=== PATIENT | female | born 1970 | race Caucasian/White ===

== ENCOUNTER 2016-06-23 18:53 | Emergency (ER) | payer OTHER ==
[~2016-06-23] VITALS: Ht 172.7 cm; Wt 83.9 kg
[~2016-06-23 18:53] MED LIST: /CARBXR20T OR; ABIL5TAB OR; ACIPHEX; AMIT10TA2 OR; ANAFRANIL; ATIV0.5T OR; BCP; DOCU10CA PO; EFFE150C PO; FERR32TA PO; FLOM5CAP PO; IBUP600T OR; IBUP80TA PO; LIPI20TA PO; LISI-538 PO; LISI40TAB PO; LORT1TAB PO; MEGA40SU PO; OMEP40CA2 PO; OXYB10TA PO; PERC5TAB6 PO; PRIL20CA; RISP1TAB OR; SENO8.6T5 OR; TEGR200T PO; TRAZ150T OR; VENL150C43 PO; VENL75CA PO; VITA100066 PO; VITMTA PO
[2016-06-23] MEDS ORDERED: KLON1TAB PO (19:08)
--- NOTE | 2016-06-23 21:00 | REPUSA ---
CT of the head Clinical history: trauma. Technique: Multiple axial CT images were obtained through the head without administration of contrast . Comparison: None. Findings: The ventricles and sulci are symmetric bilaterally. There is no evidence of acute hemorrhag e or infarct. There is no midline shift, mass effect, or extra-axial fluid collection. The osseous st ructures are unremarkable. The visualized paranasal sinuses and mastoid air cells are clear. Impression: Negative study.
[2016-06-23 21:59] VITALS: BP 142/68
== END 2016-06-23 22:00 | disposition home or self-care (01) ==
LOC: M ED 20:48
DX: S09.90XA Unspecified injury of head, initial encounter (principal); W19.XXXA Unspecified fall, initial encounter; Y92.018 Other place in single-family (private) house as the place of occurrence of the external cause; Y93.89 Activity, other specified; Y99.8 Other external cause status; I10 Essential (primary) hypertension; E78.00 Pure hypercholesterolemia, unspecified; I25.10 Atherosclerotic heart disease of native coronary artery without angina pectoris; F41.9 Anxiety disorder, unspecified; F33.9 Major depressive disorder, recurrent, unspecified; Z98.84 Bariatric surgery status; Z79.899 Other long term (current) drug therapy

== ENCOUNTER → 2017-03-18 | Outpatient (REF) | payer OTHER ==
[2017-03-18 19:41] LABS: INFLUENZA A AMPLIFICATION NEGATIVE (NEGATIVE); INFLUENZA B AMPLIFICATION NEGATIVE (NEGATIVE)
== END ==
LOC: M LAB REF 17:53
DX: R05 Cough (principal)
CPT/HCPCS: 87502

== ENCOUNTER → 2018-01-06 | Outpatient (REF) | payer OTHER ==
[2018-01-06 17:20] LABS: VITAMIN B12 LEVEL 716 PG/ML (247-911)
== END ==
LOC: M LAB REF 16:40
DX: R63.4 Abnormal weight loss (principal)
CPT/HCPCS: 82607

== ENCOUNTER → 2019-01-04 | Outpatient (CLI) | payer MEDICARE ==
[~2019-01-04] MED LIST changes: -/CARBXR20T OR; -EFFE150C PO; +EFFE150C2 PO; +FLOM0.4C39 PO; -FLOM5CAP PO; +KLON1TAB PO; +LISI40TA52 PO; -LISI40TAB PO; -OMEP40CA2 PO; +OMEP40CA97 PO; -OXYB10TA PO; +OXYB10TA2 PO; +PERC5TAB12 PO; -PERC5TAB6 PO; +TEGR1TAB OR; -VENL75CA PO; +VENL75CA2 PO
--- NOTE | 2019-01-04 12:24 | REP ---
Hepatobiliary scan and gallbladder ejection fraction: History: Right upper quadrant abdomen pain. Technique: 6.6 mCi of technetium-99m mebrofenin was injected and sequential anterior images are acquired. 65 minutes after the mebrofenin injection, the patient consumed 8 ounces Ensure and an additional 60 minutes of imaging was acquired. Regions of interest are plotted around the gallbladder. Findings: The initial hepatocellular parenchymal uptake phase is normal and homogeneous. Intra- and extra-hepatic bile ducts are labeled by the 10 -minute image. The gallbladder is first labeled on the 25 -minute image. There is normal washout from the liver parenchyma into the gallbladder and small intestine on subsequent images. The gallbladder ejection fraction is 99 %. Values greater than 35 % are considered normal with this technique. Impression: Normal hepatobiliary scan and normal gallbladder ejection fraction. Electronically Signed by Jerrod Shafer MD 01/04/2019 12:16 P
== END ==
LOC: M RAD 08:05
PROVIDERS: ATTEND Nurse Practitioner Adult Health
DX: R10.11 Right upper quadrant pain (principal)
CPT/HCPCS: 78227; A9537; J2805

== ENCOUNTER → 2019-04-20 | Outpatient (CLI) | payer MEDICARE ==
[~2019-04-20] MED LIST changes: -OXYB10TA2 PO; +OXYB10TA23 PO
[2019-04-20 15:57] LABS: FREE T4 0.93 NG/DL (0.76-1.46); THYROID STIMULATING HORMONE 2.68 uIU/ML (0.358-3.740)
== END ==
LOC: M LAB 14:44
PROVIDERS: ATTEND Internal Medicine Gastroenterology
DX: R11.2 Nausea with vomiting, unspecified (principal)

== ENCOUNTER → 2019-04-22 | Outpatient (REF) | payer MEDICARE | LOC: M LAB REF 10:13 | PROVIDERS: ATTEND Internal Medicine Gastroenterology | DX: R11.2 Nausea with vomiting, unspecified (principal) ==

== ENCOUNTER → 2019-07-13 | Outpatient (CLI) | payer MEDICARE ==
[~2019-07-13] MED LIST changes: +AMLO25TA PO; +CIDA500T2 PO; +CO Q200C10 PO; +DERM1TAB2 PO; +MAGN400C PO; +ZINC1TAB2 PO
== END ==
LOC: M LABSMTC 11:04
PROVIDERS: ATTEND Anesthesiology
DX: Z01.818 Encounter for other preprocedural examination (principal); Z11.59 Encounter for screening for other viral diseases
CPT/HCPCS: C9803; U0003

== ENCOUNTER 2019-07-16 08:33 | Day surgery (SDC) | payer MEDICARE ==
[~2019-07-16] VITALS: Ht 172.7 cm; Wt 86.5 kg
[~2019-07-16 08:33] MED LIST changes: -LISI-538 PO; +LISI20TA33 PO; +NS 1,000 ML IV ONE
--- NOTE | 2019-07-16 10:36 | ROOR ---
Patient Name: Janee Mederos Procedure Date: 07/16/2019 9:59 AM Date of : 1970 Age: 49 Room: [facility] Gender: Female Note Status: Finalized Procedure: Upper GI endoscopy Indications: Nausea with vomiting Providers: Ed MC MD Referring MD: Jennifer Funk NP Requesting Provider: Medicines: Monitored Anesthesia Care Complications: No immediate complications. Procedure: Pre-Anesthesia Assessment: - The heart rate, respiratory rate, oxygen saturations, blood pressure, adequacy of pulmonary ventilation, and response to care were monitored throughout the procedure. The Endoscope was introduced through the mouth, and advanced to the second part of duodenum. The upper GI endoscopy was accomplished without difficulty. The patient tolerated the procedure well. Findings: The examined esophagus was normal. (The area of the LES feels a bit spastic) The entire examined stomach was normal. The examined duodenum was normal. Biopsies for histology were taken with a cold forceps for evaluation of celiac disease. Impression: - Normal esophagus. - Normal stomach. - Normal examined duodenum. Biopsied. Recommendation: - Telephone endoscopist for pathology results in 2 weeks. - Observe patient's clinical course. - Your Gallbladder ejection fraction is 99%.- May be Hyeractive. Consider discussing this with your surgeon. Consider cholecystectomy. - Continue Dicyclomine as needed Ed Mc MD Ed MC MD 07/16/2019 10:35:58 AM Electronically signed by Ed MC MD Number of Addenda: 0 Note Initiated On: 07/16/2019 9:59 AM Estimated Blood Loss: Estimated blood loss: none. Estimated blood loss: none.
--- NOTE | 2019-07-16 10:38 | ROOR ---
Patient Name: Janee Mederos Procedure Date: 07/16/2019 10:00 AM Date of : 1970 Age: 49 Room: [facility] Gender: Female Note Status: Finalized Procedure: Colonoscopy Indications: Clinically significant diarrhea of unexplained origin Providers: Ed MC MD Referring MD: Jennifer Funk NP Requesting Provider: Medicines: Monitored Anesthesia Care Complications: No immediate complications. Procedure: Pre-Anesthesia Assessment: - The heart rate, respiratory rate, oxygen saturations, blood pressure, adequacy of pulmonary ventilation, and response to care were monitored throughout the procedure. The Colonoscope was introduced through the anus and advanced to 10 cm into the ileum. The colonoscopy was performed without difficulty. The patient tolerated the procedure well. The quality of the bowel preparation was good. Findings: The perianal and digital rectal examinations were normal. Internal hemorrhoids were found during retroflexion. The hemorrhoids were medium-sized. The entire examined colon appeared normal on direct and retroflexion views. The terminal ileum appeared normal. Biopsies for histology were taken with a cold forceps for evaluation of microscopic colitis. Impression: - Internal hemorrhoids. - The entire examined colon is normal on direct and retroflexion views. - The examined portion of the ileum was normal. - Biopsies were taken with a cold forceps for evaluation of microscopic colitis. Recommendation: - Telephone endoscopist for pathology results in 2 weeks. - Use Bentyl (dicyclomine) 20 mg PO TID 30 min AC. Ed Mc MD Ed MC MD 07/16/2019 10:38:15 AM Electronically signed by Ed MC MD Number of Addenda: 0 Note Initiated On: 07/16/2019 10:00 AM Estimated Blood Loss: Estimated blood loss: none.
[2019-07-16 11:00] VITALS: BP 141/70
== END 2019-07-16 11:20 | disposition home or self-care (01) ==
LOC: M OPP 08:33
PROVIDERS: ATTEND Internal Medicine Gastroenterology
DX: K64.8 Other hemorrhoids (principal); R19.7 Diarrhea, unspecified; R11.2 Nausea with vomiting, unspecified; Z79.899 Other long term (current) drug therapy; F32.9 Major depressive disorder, single episode, unspecified

== ENCOUNTER → 2020-05-18 | Outpatient (CLI) | payer MEDICARE ==
[~2020-05-18] MED LIST changes: -NS 1,000 ML IV ONE
--- NOTE | 2020-05-18 10:47 | REP ---
INDICATION: ENLARGED THYROID. COMPARISON: Outside report of an esophagram from [facility] dated 04/21/2020 identified a 1.3-1.8 cm smooth filling defect along the right proximal esophagus which could be from a prominent thyroid or from a leiomyoma in the proximal esophagus. TECHNIQUE: Thyroid ultrasound. FINDINGS: The thyroid right lobe measures 4.4 x 1.5 x 1.8 cm. The thyroid left lobe measures 3.7 x 1.4 x 0.9 cm. The thyroid isthmus measures 2.3 mm thickness. The thyroid is normal size. The thyroid parenchyma is diffusely inhomogeneous. This is compatible with goiter, but can also be seen in Hector thyroiditis and in Graves disease. There are 3 small hypoechoic nodules in the right lobe each measuring approximately 4 mm. There are 2 small nodules in the left lobe each measuring approximately 4 mm. These small nodules are likely small thyroid adenomatous cysts. IMPRESSION: The thyroid gland is normal size. The thyroid parenchyma is in homogeneous, compatible with goiter, but can also be seen in Hector thyroiditis and in Graves disease. <Electronically signed by Cliff Tovar > 05/18/20 1049
== END ==
LOC: M RAD 09:56
PROVIDERS: ATTEND Nurse Practitioner Adult Health
DX: E04.2 Nontoxic multinodular goiter (principal)

== ENCOUNTER → 2020-08-15 | Outpatient (REF) | payer MEDICARE ==
[~2020-08-15] MED LIST changes: +OMEP40CA4 PO; -OMEP40CA97 PO
[2020-08-15 13:40] LABS: APPEARANCE, URINE CLEAR (CLEAR); BACTERIA, URINE AUTO NEGATIVE (NEGATIVE); BILIRUBIN, URINE AUTO NEGATIVE (NEGATIVE); BLOOD, URINE BLOOD NEGATIVE (NEGATIVE); COLOR, URINE STRAW (YELLOW); GLUCOSE, URINE (UA) AUTO NEGATIVE (NEGATIVE); KETONE, URINE AUTO NEGATIVE (NEGATIVE); LEUKOCYTE ESTERASE, URINE AUTO NEGATIVE (NEGATIVE); NITRITE, URINE AUTO NEGATIVE (NEGATIVE); PROTEIN, URINE AUTO NEGATIVE (NEGATIVE); RBC, URINE AUTO 0 /HPF (0-3); SPECIFIC GRAVITY URINE AUTO 1.004 (1.002-1.035); SQUAMOUS EPITHELIAL CELL UR AU 0 /HPF (0-6); UROBILINOGEN, URINE AUTO 0.2 mg/dL (0.0-2.0); WBC, URINE AUTO 0 /HPF (0-3)
[2020-08-15 13:48] LABS: INR 0.89; PROTHROMBIN TIME 12.2 SECONDS (12.5-14.3)
== END ==
LOC: M LAB REF 12:39
PROVIDERS: ATTEND Nurse Practitioner Adult Health
DX: Z01.818 Encounter for other preprocedural examination (principal)

== ENCOUNTER → 2021-01-17 | Outpatient (CLI) | payer MEDICARE ==
[2021-01-17 12:54] LABS: BASO # 0.1 10^3/uL (0.0-0.2); BASO % 0.5 % (0.0-1.0); EOS # 0.1 10^3/uL (0.0-0.5); EOS % 1.5 % (0.0-3.0); HEMATOCRIT 41.6 % (36.0-47.0); HEMOGLOBIN 13.3 g/dl (12.0-15.5); LYMPH # 2.5 10^3/uL (1.5-5.0); LYMPH % 27.3 % (24.0-44.0); MEAN CORPUSCULAR VOLUME 93.9 fl (80.0-96.0); MONO # 0.8 10^3/uL (0.0-0.8); MONO % 8.1 % (2.0-8.0); NEUTROPHILS # 5.8 10^3/uL (1.5-8.5); NEUTROPHILS % 62.2 % (36.0-66.0); PLATELET COUNT, AUTOMATED 297 10^3/uL (150-450); RED BLOOD COUNT 4.43 10^6/uL (4.00-5.40); WHITE BLOOD COUNT 9.3 10^3/uL (4.0-10.0)
[2021-01-17 13:43] LABS: HEMOGLOBIN A1c 5.1 %
[2021-01-17 13:54] LABS: ALBUMIN 3.8 GM/DL (3.2-5.2); ALT/SGPT 38 U/L (12-78); BILIRUBIN,DIRECT 0.1 MG/DL (0.0-0.2); BILIRUBIN,TOTAL 0.4 MG/DL (0.2-1.0); BLOOD UREA NITROGEN 15 MG/DL (7-18); CALCIUM LEVEL 9.1 MG/DL (8.5-10.1); CARBON DIOXIDE LEVEL 26 MEQ/L (21-32); CHLORIDE LEVEL 104 MEQ/L (98-107); CREATININE FOR GFR 0.75 MG/DL (0.55-1.30); FOLATE 20.2 NG/ML (>5.4); FREE T4 0.78 NG/DL (0.76-1.46); GLOMERULAR FILTRATION RATE > 60.0 (>51); GLUCOSE, FASTING 73 MG/DL (70-100); POTASSIUM SERUM 4.4 MEQ/L (3.5-5.1); SODIUM LEVEL 138 MEQ/L (136-145); TOTAL 25(OH) VITAMIN D 33.5 NG/ML (30.0-100.0); TOTAL PROTEIN 7.3 GM/DL (6.4-8.2); VITAMIN B12 LEVEL 479 PG/ML (247-911)
[2021-01-18 11:58] LABS: ALBUMIN % 59.5 % (55.8-66.1); ALPHA-1-GLOBULIN % 3.4 % (2.9-4.9); ALPHA-2-GLOBULINS % 11.1 % (7.1-11.8); BETA-1-GLOBULINS % 6.5 % (4.7-7.2); BETA-2-GLOBULINS % 5.9 % (3.2-6.5); GAMMA GLOBULIN % 13.6 % (11.1-18.8)
[2021-01-18 11:59] LABS: ALBUMIN 4.34 GM/DL (3.29-5.55); ALPHA-1-GLOBULINS 0.25 GM/DL (0.17-0.41); ALPHA-2-GLOBULINS 0.81 GM/DL (0.42-0.99); BETA-1-GLOBULINS 0.47 GM/DL (0.28-0.60); BETA-2-GLOBULINS 0.43 GM/DL (0.19-0.55); GAMMA GLOBULINS 0.99 GM/DL (0.65-1.58)
== END ==
LOC: M WUC 10:41
PROVIDERS: ATTEND Psychiatry & Neurology Neurology
DX: R20.2 Paresthesia of skin (principal); Z79.899 Other long term (current) drug therapy

== ENCOUNTER → 2021-04-19 | Outpatient (REF) | payer MEDICARE | LOC: M LAB REF 12:42 | PROVIDERS: ATTEND Nurse Practitioner Adult Health | DX: L81.8 Other specified disorders of pigmentation (principal) ==

== ENCOUNTER → 2021-05-29 | Outpatient (CLI) | payer MEDICARE | LOC: M WHC 10:56 | PROVIDERS: ATTEND Nurse Practitioner Adult Health | DX: Z12.31 Encounter for screening mammogram for malignant neoplasm of breast (principal); Z78.0 Asymptomatic menopausal state; Z80.3 Family history of malignant neoplasm of breast ==

== ENCOUNTER → 2021-06-04 | Outpatient (CLI) | payer MEDICARE | LOC: M WUC 13:35 | PROVIDERS: ATTEND Physician Assistant Medical | DX: R05.9 Cough, unspecified (principal); J06.9 Acute upper respiratory infection, unspecified ==

== ENCOUNTER → 2021-06-04 | Outpatient (REF) | payer MEDICARE | LOC: M LAB REF 12:15 | PROVIDERS: ATTEND Physician Assistant Medical | DX: J06.9 Acute upper respiratory infection, unspecified (principal); R05.9 Cough, unspecified ==

== ENCOUNTER → 2022-04-19 | Outpatient (REF) | payer MEDICARE | LOC: M LAB REF 12:20 | PROVIDERS: ATTEND Nurse Practitioner Family | DX: R31.9 Hematuria, unspecified (principal) ==

== ENCOUNTER → 2022-05-30 | Outpatient (CLI) | payer MEDICARE | LOC: M WHC 08:42 | PROVIDERS: ATTEND Internal Medicine | DX: Z12.31 Encounter for screening mammogram for malignant neoplasm of breast (principal) ==

== ENCOUNTER → 2022-10-02 | Outpatient (REF) | payer MEDICARE ==
[2022-10-02 14:35] LABS: RSV AMPLIFICATION NEGATIVE (NEGATIVE)
== END ==
LOC: M LAB REF 11:48
PROVIDERS: ATTEND Nurse Practitioner Family
DX: R53.83 Other fatigue (principal)

== ENCOUNTER → 2022-10-18 | Outpatient (CLI) | payer MEDICARE | LOC: M WUC 10:13 | PROVIDERS: ATTEND Nurse Practitioner Family | DX: R05.3 Chronic cough (principal); J06.9 Acute upper respiratory infection, unspecified ==

== ENCOUNTER → 2023-01-17 | Outpatient (CLI) | payer MEDICARE ==
[~2023-01-17] MED LIST changes: -EFFE150C2 PO; +EFFE150C3 PO; +GASTROGRAFIN SOLUTION 30ML As Ordered ONE; +ISOVUE-370 76% 100ML VIAL As Ordered ONE
== END ==
LOC: M RAD 07:05
PROVIDERS: ATTEND Nurse Practitioner Family
DX: R10.30 Lower abdominal pain, unspecified (principal); K57.30 Diverticulosis of large intestine without perforation or abscess without bleeding
CPT/HCPCS: 74177; Q9963; Q9967

== ENCOUNTER → 2023-07-24 | Outpatient (CLI) | payer MEDICARE ==
[~2023-07-24] MED LIST changes: -GASTROGRAFIN SOLUTION 30ML As Ordered ONE; -ISOVUE-370 76% 100ML VIAL As Ordered ONE; -KLON1TAB PO; +KLON1TAB13 PO
== END ==
LOC: M PLARAD 11:34
PROVIDERS: ATTEND Nurse Practitioner Family
DX: R51.9 Headache, unspecified (principal); G93.0 Cerebral cysts

== ENCOUNTER → 2023-10-07 | Outpatient (CLI) | payer MEDICARE | LOC: M WHC 07:26 | PROVIDERS: ATTEND Nurse Practitioner Family | DX: Z12.31 Encounter for screening mammogram for malignant neoplasm of breast (principal); R92.323 Mammographic fibroglandular density, bilateral breasts ==